=== PATIENT | male | born 1935 | race Caucasian/White ===

== ENCOUNTER → 2020-06-25 02:42 | Outpatient (CLI) | payer MEDICARE, SELFPAY ==
[2020-06-25 19:44] LABS: SARS-CoV-2 RNA PCR Negative
== END ==
PROVIDERS: Visit Provider Internal Medicine Gastroenterology
DX: Z01.812 Encounter for preprocedural laboratory examination (principal); Z20.822 Contact with and (suspected) exposure to COVID-19
CPT/HCPCS: C9803; U0003; U0005

== ENCOUNTER 2020-06-29 02:58 | Day surgery (SDC) | payer MEDICARE, SELFPAY ==
[2020-06-16 13:41] VITALS: BMI 29.9
[2020-06-29 08:29] VITALS: BP 138/66; PULSE 72; RESP 16; TEMP 36.1; O2SAT 100; BMI 30.4
[2020-06-29] MEDS: LACTATED RINGERS 1,000 ML 150 ML IV CONT (08:45)
--- NOTE | 2020-06-29 09:16 | P.PNAN_ITS ---
Anes - Initial Pre Proc Eval Procedure: Operation Date: 06/29/20 09:30 Proposed Procedures p Esophagogastroduodenoscopy & Screening Colonoscopy - Daniel Bneitez MD Date/Time: 06/29/20 09:16 Surgeon: Daniel Yusuf MD Pre Op Diagnosis: GERD, Neoplasm Screening Patient Data Age: 85 Gender: M Height: 6 ft Weight: 101.7 kg Last Vital Signs Temp 96.9 F L 06/29/20 08:29 Pulse 72 06/29/20 08:29 Resp 16 06/29/20 08:29 BP 138/66 06/29/20 08:29 Pulse Ox 100 06/29/20 08:29 Allergies Allergy/AdvReac Type Severity Reaction Status Date / Time No Known Allergies Allergy Unverified 06/29/20 08:29 Home Medications Medication Instructions Recorded Confirmed Type sodium,potassium,mag sulfates 17.5 See Rx Instructions PO .COMPLEX 06/14/20 06/29/20 Rx gram-3.13 gram-1.6 gram oral soln #354 ml allopurinol 300 mg PO QAM 06/16/20 06/29/20 History amlodipine 10 mg PO QAM 06/16/20 06/29/20 History apixaban [Eliquis] 5 mg PO BID 06/16/20 06/29/20 History benazepril 40 mg PO QAM 06/16/20 06/29/20 History cholecalciferol (vitamin D3) 2,000 unit PO QPM 06/16/20 06/29/20 History [Vitamin D3] finasteride 5 mg PO QAM 06/16/20 06/29/20 History loratadine 10 mg PO DAILY PRN 06/16/20 06/29/20 History metoprolol succinate 50 mg PO QAM 06/16/20 06/29/20 History omeprazole 40 mg PO BID 06/16/20 06/29/20 History pravastatin 20 mg PO QPM 06/16/20 06/29/20 History Patient hx anesthesia problems: none Family hx anesthesia problems: none PMFSH Past Medical History Medical History (Updated 06/29/20 @ 09:16 by Brett Baker MD) Atrial fibrillation Hyperlipidemia Hypertension MAVIS (obstructive sleep apnea) Social History Social History Smoking packs per day: 2 Smoking cigarettes per day: 40.0 Years smoked: 20 Smoking pack-years: 40.00 Smoking status: Former smoker Tobacco type: cigarettes Alcohol intake: current Substance use: never Substance use type: does not use Living arrangements: with family Spiritual care concerns: No Anes - Eval Final PreProcedure Day of Procedure 06/29/20 09:16 Patient weight: obese Heart: regular rate and rhythm Lungs: clear to auscultation Airway: Mallampati scale class II Neurological: alert and oriented Last oral intake: >/= 8 hours ASA classification: III Emergent: no Anesthetic plan: proceed Anesthesia type and monitoring: general GIVS and standard monitoring Informed Consent: The patient's anesthetic plan and its attendant risks and benefits were discussed with the patient/family/POA. Questions were solicited and answers provided to the satisfaction of the patient/family/POA.
--- NOTE | 2020-06-29 09:55 | PM.HPGS ---
History of Present Illness History of Present Illness Consent: Risks, benefits, and alternatives have been discussed and questions answered. Patient agrees to proceed with procedure. Chief complaint: GERD, Neoplasm Screening Narrative: Kurtis Mckinney is a 85 year old male with gerd better after ppi was increased bid but still some hoarseness, never had EGD. His last colonoscopy about 10 years ago. Review of Systems Constitutional: Constitutional: Denies headache(s) and Denies weakness Eyes: Eyes: Denies blurry vision ENT: Reports Normal hearing present, Denies headache(s) and Denies neck pain Cardiovascular: Cardiovascular: Denies chest pain and Denies dyspnea Respiratory: Respiratory: Denies dyspnea Gastrointestinal: Gastrointestinal: Reports no additional gastrointestinal complaints Genitourinary: Genitourinary: Denies dysuria Musculoskeletal: Musculoskeletal: Denies neck pain Integumentary/Breasts: Skin/Breast: Denies dry skin Neurologic: Reports Normal hearing present, Denies headache(s) and Denies weakness Psychiatric: Psychiatric: Denies anxiety Endocrine: Endocrine: Denies change in body appearance Hematologic/Lymphatic: Hematologic/Lymphatic: Denies easy bleeding Allergic/Immunologic: Allergic/Immunologic: Denies urticaria PMF Past Medical History Medical History (Updated 06/29/20 @ 09:55 by Daniel Yusuf MD) Atrial fibrillation Colon cancer screening GERD (gastroesophageal reflux disease) Hyperlipidemia Hypertension MAVIS (obstructive sleep apnea) Social History Social History Smoking packs per day: 2 Smoking cigarettes per day: 40.0 Years smoked: 20 Smoking pack-years: 40.00 Smoking status: Former smoker Tobacco type: cigarettes Alcohol intake: current Substance use: never Substance use type: does not use Living arrangements: with family Spiritual care concerns: No Meds Home Medications and Allergies Home Medications Medication Instructions Recorded Confirmed Type sodium,potassium,mag sulfates 17.5 See Rx Instructions PO .COMPLEX 06/14/20 06/29/20 Rx gram-3.13 gram-1.6 gram oral soln #354 ml allopurinol 300 mg PO QAM 06/16/20 06/29/20 History amlodipine 10 mg PO QAM 06/16/20 06/29/20 History apixaban [Eliquis] 5 mg PO BID 06/16/20 06/29/20 History benazepril 40 mg PO QAM 06/16/20 06/29/20 History cholecalciferol (vitamin D3) 2,000 unit PO QPM 06/16/20 06/29/20 History [Vitamin D3] finasteride 5 mg PO QAM 06/16/20 06/29/20 History loratadine 10 mg PO DAILY PRN 06/16/20 06/29/20 History metoprolol succinate 50 mg PO QAM 06/16/20 06/29/20 History omeprazole 40 mg PO BID 06/16/20 06/29/20 History pravastatin 20 mg PO QPM 06/16/20 06/29/20 History Allergies Allergy/AdvReac Type Severity Reaction Status Date / Time No Known Allergies Allergy Unverified 06/29/20 08:29 Vital Signs Vital Signs - 24 hr 06/29/20 08:29 Temperature 96.9 F L Pulse Rate 72 Respiratory Rate 16 Blood Pressure 138/66 Pulse Oximetry 100 Exam Const: General: comfortable and no acute distress HENMT: General nose exam: Normal nares present Eyes: General: appearance normal, both eyes and all related structures Neck: Neck: no JVD Resp: Auscultation: clear to auscultation bilaterally Cardio: Rate: regular rate Rhythm: regular rhythm GI: Inspection: non-distended GI Palp: Yes Soft to palpation Skin: General skin exam: normal color Neuro: General: gait normal Speech: normal speech Extrem: General: normal to inspection Psych: Mental Status: mental status grossly normal Assessment and Plan Assessment and plan (1) GERD (gastroesophageal reflux disease): Code(s): K21.9 - Gastro-esophageal reflux disease without esophagitis Status: Acute Assessment and Plan: egd with bx, already on ppi (2) Colon cancer screening: Code(s): Z12.11 - Encounter for screening for malignant neoplasm of colon Stat
[2020-06-29 10:27] VITALS: BP 121/77; PULSE 89; RESP 20; O2SAT 100
[2020-06-29 10:37] VITALS: BP 136/92; PULSE 91; RESP 16; O2SAT 98
[2020-06-29 10:47] VITALS: BP 133/86; PULSE 103; RESP 25; O2SAT 99
== END 2020-06-29 11:13 | disposition home or self-care (01) ==
PROVIDERS: Visit Provider Internal Medicine Gastroenterology
PROC: 0DJ08ZZ Inspection of Upper Intestinal Tract, Via Natural or Artificial Opening Endoscopic (ICD-10-PCS; CPT 43235; principal; 2020-06-29 09:30)
DX: Z12.11 Encounter for screening for malignant neoplasm of colon (principal); K57.30 Diverticulosis of large intestine without perforation or abscess without bleeding; K64.8 Other hemorrhoids; K21.9 Gastro-esophageal reflux disease without esophagitis; R49.0 Dysphonia; Z79.01 Long term (current) use of anticoagulants; I48.91 Unspecified atrial fibrillation; I10 Essential (primary) hypertension; E78.5 Hyperlipidemia, unspecified; G47.33 Obstructive sleep apnea (adult) (pediatric); Z87.891 Personal history of nicotine dependence; E66.9 Obesity, unspecified; Z68.30 Body mass index [BMI] 30.0-30.9, adult
CPT/HCPCS: 43239; G0121; 88305; C9803; J2001; J2704; J7120; U0003; U0005

== ENCOUNTER 2022-06-07 00:09 | Day surgery (SDC) | payer MEDICARE, SELFPAY ==
--- NOTE | 2022-05-29 09:15 | P.HP_ITS ---
History of Present Illness History of Present Illness Consent: Risks, benefits, and alternatives have been discussed and questions answered. Patient agrees to proceed with procedure. Chief complaint: epididymitis Narrative: Kurtis Mckinney is a 87 year old male Well known to our practice with longstanding BPH managed medically. He was recently seen in follow-up with persistent left epididymitis it did not resolve with a course of antibiotics over the course of 2 months. Exam showed persistent induration in the left epididymis and a scrotal ultrasound showed a 2.5 cm solid mass. After discussion he has elected for left epididymectomy. He is aware the risk including, not limited to, wound infection scrotal hematoma. [facility] Past Medical History Medical History (Updated 05/29/22 @ 09:17 by Sven George MD) Atrial fibrillation Colon cancer screening GERD (gastroesophageal reflux disease) Hyperlipidemia Hypertension MAVIS (obstructive sleep apnea) Social History Social History Smoking packs per day: 2 Smoking cigarettes per day: 40.0 Years smoked: 20 Smoking pack-years: 40.00 Smoking status: Former smoker Tobacco type: cigarettes Alcohol intake: current Substance use: never Substance use type: does not use Living arrangements: with family Spiritual care concerns: No Meds Home Medications and Allergies Home Medications Medication Instructions Recorded Confirmed Type sodium,potassium,mag sulfates 17.5 See Rx Instructions PO .COMPLEX 06/14/20 06/29/20 Rx gram-3.13 gram-1.6 gram oral soln #354 mL (Suprep Bowel Prep Kit) allopurinol 300 mg tablet 300 mg PO QAM 06/16/20 06/29/20 History amlodipine 10 mg tablet 10 mg PO QAM 06/16/20 06/29/20 History apixaban 5 mg tablet (Eliquis) 5 mg PO BID 06/16/20 06/29/20 History benazepril 40 mg tablet 40 mg PO QAM 06/16/20 06/29/20 History cholecalciferol (vitamin D3) 50 2,000 unit PO QPM 06/16/20 06/29/20 History mcg (2,000 unit) capsule (Vitamin D3) finasteride 5 mg tablet 5 mg PO QAM 06/16/20 06/29/20 History loratadine 10 mg tablet 10 mg PO DAILY PRN Allergy Symptoms 06/16/20 06/29/20 History metoprolol succinate 50 mg 50 mg PO QAM 06/16/20 06/29/20 History tablet,extended release 24 hr omeprazole 40 mg capsule,delayed 40 mg PO BID 06/16/20 06/29/20 History release pravastatin 20 mg tablet 20 mg PO QPM 06/16/20 06/29/20 History Allergies Allergy/AdvReac Type Severity Reaction Status Date / Time No Known Allergies Allergy Unverified 06/29/20 08:29 Exam Const: General: no acute distress Resp: Effort & Inspection: normal respiratory effort GI: Inspection: non-distended GI Palp: No abdominal tenderness and No Guarding due to palpation present (GI) Auscultation: normal bowel sounds : Scrotum: other ( Solid left epididymal mass) Assessment and Plan Assessment and plan (1) Epididymal mass: Code(s): N50.89 - Other specified disorders of the male genital organs Status: Acute Assessment and Plan: * left epididymectomy
[2022-05-31 13:06] VITALS: BMI 27.1
--- NOTE | 2022-05-31 13:28 | PC.NURSE ---
Report to the Outpatient Waiting Room, entrance under the green pavilion located off [facility], at time _1000_ on date _06/07/22_. Planned Procedure Time: _1200_. Time changes happen often and if your time is changed the preop area will call you the afternoon before. - You and your visitor will be asked to self-screen and do not enter if you have any COVID symptoms. - Only one visitor is requested with a max of two and NO children visitors are allowed at this time. - The patient visitor may be requested to leave or wait in car when not with patient due to distancing restrictions. - A mask is optional within the hospital at this time. Patients may have clear liquids (water, carbonated beverages, clear teas, apple juice) until 3 hours prior to surgery (0900 AM) with a maximum of 20 ounces. - No food from midnight until time of surgery Take the following medications with a SIP of water the morning of surgery: _METOPROLOL_ DO NOT STOP ANY OF YOUR OTHER PRESCRIPTION MEDICATIONS PRIOR TO SURGERY ?EXCEPT THE FOLLOWING Medications to discontinue per DR. MARKS - _ELIQUIS 3 DAYS PRIOR TO SURGERY, Date to take last dose 06/03/22_ Medications to discontinue per ANESTHESIA - _MULTIVITAMIN 3 DAYS PRIOR TO SURGERY, Date to take last dose 06/03/22_ Please no make-up, nail yi, hairspray, perfume, deodorant, or body powder the day of surgery. No jewelry (including any body piercings) or valuables the day of surgery, leave them at home. Please take a shower or bath the night before, or the morning of, surgery with an antibacterial soap. Wear comfortable, loose fitting clothing. - Jewelry must be removed prior to entering the operating room. Rings and piercings that are not removed may be cut off. - The hospital will not accept responsibility for valuables. - Please leave all valuables, including medications, at home the day of surgery. If you are going home after surgery, a licensed telephone directory distributor driver must drive you home. - NO public transportation without another adult if you receive anesthesia. - We recommend that an adult stay with you for 24 hours following discharge. - We also recommend that you do not drive, make important decision, drink alcoholic beverages, or take any drugs that were not prescribed by your health care provider for at least 24 hours after your discharge time. Follow any additional instructions given to you from your surgeon. If you or anyone in your household have experienced Covid symptoms in the past week, please notify your surgeon or the nurse liaison at the phone number below for possible testing. Telephone instructions given to _PATIENT & SPOUSE_and asked if any additional questions and then verbalized understanding. Patient advised to call surgeon office or pre surgery nurse liaison [phone] if any additional questions.
--- NOTE | 2022-06-06 15:16 | P.PNAN_ITS ---
Anes - Initial Pre Proc Eval Procedure: Operation Date: 06/07/22 11:30 Proposed Procedures p Left Epididymectomy - Sven George MD Date/Time: 06/06/22 15:16 Surgeon: Sven George MD Pre Op Diagnosis: epididymitis Patient Data Age: 87 Gender: M Height: 1.83 m Weight: 90.9 kg Allergies Allergy/AdvReac Type Severity Reaction Status Date / Time No Known Allergies Allergy Unverified 06/29/20 08:29 Home Medications Medication Instructions Recorded Confirmed Type allopurinol 300 mg tablet 300 mg PO QAM 06/16/20 05/31/22 History apixaban 5 mg tablet (Eliquis) 5 mg PO BID 06/16/20 05/31/22 History loratadine 10 mg tablet 10 mg PO DAILY PRN Allergy Symptoms 06/16/20 05/31/22 History metoprolol succinate 50 mg 50 mg PO QAM 06/16/20 05/31/22 History tablet,extended release 24 hr pravastatin 20 mg tablet 20 mg PO QPM 06/16/20 05/31/22 History folic acid 1 mg tablet 1 mg PO DAILY 05/31/22 05/31/22 History losartan 100 mg tablet 100 mg PO DAILY 05/31/22 05/31/22 History methotrexate sodium 2.5 mg tablet 7.5 mg WEEKLY 05/31/22 05/31/22 History multivitamin 1 tablet PO DAILY 05/31/22 05/31/22 History Patient hx anesthesia problems: none Family hx anesthesia problems: none Results Review: All pre-operative results and documents have been reviewed as part of the pre- operative evaluation. [facility] Past Medical History Medical History (Updated 05/29/22 @ 09:17 by Sven George MD) Atrial fibrillation Colon cancer screening GERD (gastroesophageal reflux disease) Hyperlipidemia Hypertension MAVIS (obstructive sleep apnea) Social History Social History Smoking packs per day: 1.5 Smoking cigarettes per day: 30.0 Years smoked: 16 Smoking pack-years: 24.00 Smoking status: Former smoker Tobacco type: cigarettes Second hand tobacco smoke exposure: No Smoking end date: 03/11/71 Alcohol intake: current Drinks per week: 2 Substance use: never Substance use type: does not use Living arrangements: with family Spiritual care concerns: No Anes - Eval Final PreProcedure Day of Procedure 06/06/22 15:16 Patient weight: overweight Heart: regular rate and rhythm Lungs: clear to auscultation Airway: Mallampati scale class II Neurological: alert and oriented Last oral intake: >/= 8 hours ASA classification: III Emergent: no Anesthetic plan: proceed Anesthesia type and monitoring: general LMA and standard monitoring Results Review: All pre-operative results and documents have been reviewed as part of the pre- operative evaluation. Informed Consent: The patient's anesthetic plan and its attendant risks and benefits were discussed with the patient/family/POA. Questions were solicited and answers provided to the satisfaction of the patient/family/POA.
[2022-06-07] VITALS (10 sets, daily range): BP systolic 118–158; BP diastolic 79–97; PULSE 38–83; RESP 12–20; TEMP 36.2–36.4; O2SAT 96–100
--- NOTE | 2022-06-07 06:19 | WPDHPUPDATE1 ---
History and Physical Update Update Date/Time: 06/07/22 06:19 History and Physical has been reviewed, including an updated exam of the patient. There are NO changes in the patient's condition. Risks, benefits, and alternatives have been discussed and questions answered. Patient agrees to proceed with procedure.
[2022-06-07] MEDS: ceFAZolin 2 GM/D5W 50 ML 2 GM/50 ML BAG IVPB (11:56)
--- NOTE | 2022-06-07 12:22 | P.OP_ITS ---
Procedure Note - Detailed Date of Procedure 06/07/22 Pre-op Diagnosis Epididymitis and left epididymal mass Post-op Diagnosis Same Procedure Performed Left epididymectomy Surgeon Sven George MD Anesthesia General Description of Procedure The patient was brought to the operative suite where he was prepped and draped in routine sterile fashion while in a supine position after the uneventful induction of a general LMA anesthetic. An incision was made in the median raphe of the scrotum and dissection was carried into the left tunica vaginalis. The testicle was examined and found to be both visibly and palpably normal. The epididymis was indurated, consistent with chronic infection with an enlarged ma ss-like component towards the tail. The epididymis was excised in its entirety using electrocautery, including this mass-like structure. The testicle was returned to an orthotopic positioned. The dartos muscle was closed with a running 4-0 chromic and the skin was likewise closed with a running 4-0 chromic. Estimated blood loss throughout this procedure was 5cc. Patient tolerated the procedure well and was taken to the recovery room in good condition. Drains No Pathology Yes Complications No immediate complications Condition Stable
[2022-06-07] MEDS: LACTATED RINGERS 1,000 ML 30 ML IV CONT (12:25)
== END 2022-06-07 14:50 | disposition home or self-care (01) ==
PROVIDERS: Visit Provider Urology
PROC: (CPT 54860; principal; 2022-06-07 11:30)
DX: N45.1 Epididymitis (principal); I48.91 Unspecified atrial fibrillation; E78.5 Hyperlipidemia, unspecified; I10 Essential (primary) hypertension; G47.33 Obstructive sleep apnea (adult) (pediatric); K21.9 Gastro-esophageal reflux disease without esophagitis; Z87.891 Personal history of nicotine dependence; Z79.01 Long term (current) use of anticoagulants
CPT/HCPCS: 54860; 88304; J0690; J1100; J2405; J2704; J7120

== ENCOUNTER 2022-06-10 08:18 | Emergency (ER) | payer MEDICARE, SELFPAY ==
--- NOTE | ~2022-06-10 | US_ITS ---
EXAMINATION: US scrotum doppler DATE: 06/10/2022 09:24 INDICATION: Testicular pain. TECHNIQUE: Grayscale and Doppler ultrasound images of the testes were obtained. COMPARISON: None. FINDINGS: The right testis measures 3.8 x 3.5 x 3.1 cm. The left testis measures 3.5 x 3.3 x 3.3 cm. The left testis demonstrates heterogeneously decreased echogenicity. There is relatively decreased va scular flow to left testis. The right epididymis is normal with normal vascular flow. There are singleton es of left epididymectomy. There is a small left hydrocele with loculations. Scrotal skin thickening is noted. IMPRESSION: 1. Heterogeneous left testis with decreased vascular flow suspicious for infarct. 2. Small left hydrocele with loculations. 3. Recent left epididymectomy. Reviewed, dictated and finalized at location A. IMPRESSION: 1. Heterogeneous left testis with decreased vascular flow suspicious for infar ct. 2. Small left hydrocele with loculations. 3. Recent left epididymectomy.
[2022-06-10 08:21] VITALS: BP 138/84; PULSE 115; RESP 18; TEMP 36.3; O2SAT 100
[2022-06-10 09:31] VITALS: BP 142/84; PULSE 93; RESP 22; O2SAT 93
--- NOTE | 2022-06-10 09:40 | ED.GENADULT ---
HPI - General Adult General Chief complaint: Urogenital-Male Stated complaint: testicle swelling after surgery Time Seen by Provider: 06/10/22 08:57 Source: RN notes reviewed History of Present Illness HPI narrative: Patient presents emergency department from home for left testicular pain. Patient states that he had surgery on his left testicle by Dr. George on June 07. He had had his epididymis removed at that time. He states that he got home and been doing well and began to notice pain in his left testicle and swelling on Saturday night the . He states that those symptoms continued on Saturday with increased swelling and bruising of the scrotum and came to the emergency department today for evaluation states he does have pain in left testicle is progressively worsening. Patient is on Eliquis and had been off the medication for the surgery and had restarted it SaturdayJune 09 denies any fevers or chills abdominal pain nausea vomiting Related Data Home Medications Medication Instructions Recorded Confirmed allopurinol 300 mg tablet 300 mg PO QAM 06/16/20 05/31/22 apixaban 5 mg tablet (Eliquis) 5 mg PO BID 06/16/20 05/31/22 loratadine 10 mg tablet 10 mg PO DAILY PRN Allergy Symptoms 06/16/20 05/31/22 metoprolol succinate 50 mg 50 mg PO QAM 06/16/20 05/31/22 tablet,extended release 24 hr pravastatin 20 mg tablet 20 mg PO QPM 06/16/20 05/31/22 folic acid 1 mg tablet 1 mg PO DAILY 05/31/22 05/31/22 losartan 100 mg tablet 100 mg PO DAILY 05/31/22 05/31/22 methotrexate sodium 2.5 mg tablet 7.5 mg WEEKLY 05/31/22 05/31/22 multivitamin 1 tablet PO DAILY 05/31/22 05/31/22 Allergies Allergy/AdvReac Type Severity Reaction Status Date / Time No Known Allergies Allergy Verified 06/10/22 10:19 Review of Systems Review of Systems: Gen.: Denies fevers or chills ENT: Denies congestion Respiratory: Denies shortness of breath or cough CV: Denies chest pain or palpitations GI: Denies abdominal pain nausea, emesis or diarrhea see HPI Musculoskeletal: Denies back pain or muscle pain Neuro: Denies numbness, tingling, weakness or focal weakness Skin: Denies rash Except as documented, all other systems reviewed and negative [facility] Past Medical History Medical History Atrial fibrillation Colon cancer screening GERD (gastroesophageal reflux disease) Hyperlipidemia Hypertension MAVIS (obstructive sleep apnea) Social History Social History Smoking packs per day: 1.5 Smoking cigarettes per day: 30.0 Years smoked: 16 Smoking pack-years: 24.00 Smoking status: Former smoker Tobacco type: cigarettes Second hand tobacco smoke exposure: No Smoking end date: 03/11/71 Alcohol intake: current Drinks per week: 2 Substance use: never Substance use type: does not use Living arrangements: with family Spiritual care concerns: No Exam Narrative: APPEARANCE: No acute distress, nontoxic, resting in bed EYES: EOMI HEENT: Normocephalic, atraumatic, OMM RESPIRATORY: No respiratory distress Clear to auscultation bilaterally with no rhonchi wheezing or rales. CARDIOVASCULAR: Regular rate and rhythm without murmurs rubs or gallops. ABDOMINAL: Soft, nontender, nondistended, no rebound or guarding : There is diffuse ecchymosis of the scrotum up through the penis there is no active bleeding noted, the bilateral testicles are tender to palpation MUSCULOSKELETAl: Moves all extremities. No clubbing, cyanosis or edema. NEURO: Awake and alert. Following commands, speech normal, no focal deficits SKIN:: Warm, dry. No rashes lesions or abrasions PSYCHIATRIC: Normal affect/mood, Course Course Emergency Course: Called and discussed with urology Dr. Espinoza patient presentation work-up reviewed the patient's ultrasound. This time he states he will discussed with radiology and Dr. George and call back
[2022-06-10 10:01] LABS: Basophils Percent Auto 0.3 % (0.2-1.2); Eosinophils Percent Auto 0.2 % (0-4.4); Hemoglobin 13.6 g/dL (14.0-18.0); Immature Granulocyte Absolute 0.04 K/mm3 (0.00-0.031); Immature Granulocyte Percent A 0.4 % (0-0.5); Lymphocytes Absolute Auto 1.02 K/mm3 (0.9-3.2); Lymphocytes Percent Auto 10.8 % (18.3-44.2); Mean Corpuscular HGB Conc 32.4 g/dl (32-36); Mean Corpuscular Hemoglobin 32.7 pg (26-34); Mean Platelet Volume 9.9 fl (7.4-10.4); Monocytes Absolute Auto 0.4 K/mm3 (0.1-0.6); Monocytes Percent Auto 3.8 % (2.6-8.5); Neutrophils Percent Auto 84.5 % (45.5-73.1); Platelet Count Result 143 k/mm3 (150-375); Red Blood Count 4.16 M/mm3 (4.6-6.20); Red Cell Distribution Width 17.7 % (11.5-14.5); White Blood Count 9.5 K/mm3 (4.5-10.0)
[2022-06-10 10:06] LABS: Appearance Urine Clear (Clear); Bacteria Urine None Seen /hpf; Bilirubin Urine Negative (Negative); Blood Urine Negative (Negative); Color Urine Yellow (Yellow); Glucose Urine UA Negative (Negative); Ketones Urine Negative (Negative); Leukocyte Esterase Ur Trace LEU/UL (Negative); Nitrate Urine Negative (Negative); Non Pathogenic Casts 0-2; Protein Urine Negative (Negative); RBC Urine 0-2 /hpf (0-2); Specific Grav Ur 1.009 (1.001-1.035); Squamous Epithelial Cell Urine None seen /hpf (Few); Urobilinogen Urine 0.2 mg/dL (<2.0); WBC Urine 0-5 /hpf; pH Urine 7.5 (5.0-9.0)
[2022-06-10 10:11] LABS: INR 1.1; Prothrombin Time 14.1 Seconds (11.1-14.7)
[2022-06-10 10:12] LABS: Partial Thromboplastin Time 31.5 SECONDS (22.3-36.8)
[2022-06-10 10:14] LABS: Alanine Aminotransferase 30 U/L (6-50); Albumin Level 4.6 g/dL (3.5-5.1); Alkaline Phosphatase 68 U/L (38-126); Anion Gap 4 mmol/L (8-16); Aspartate Amino Transferase 47 U/L (17-59); Bilirubin,Total 1.8 mg/dL (0.2-1.3); Blood Urea Nitrogen 20 mg/dL (9-20); Calcium 9.6 mg/dL (8.4-10.2); Carbon Dioxide 32 mmol/L (22-30); Chloride 105 mmol/L (98-107); Estimated CRCL calculation 65 ml/min; Estimated Glomerular Filt Rate > 60; Glucose 93 mg/dL (65-110); Potassium 4.3 mmol/L (3.4-5.0); Sodium 141 mmol/L (137-145)
[2022-06-10 10:27] LABS: Add Urine Microscopic? YES
[2022-06-10 10:35] VITALS: BP 134/98; PULSE 90; RESP 20; O2SAT 95
== END 2022-06-10 10:35 | disposition home or self-care (01) ==
PROVIDERS: Emergency Provider Emergency Medicine
DX: N99.840 Postprocedural hematoma of a genitourinary system organ or structure following a genitourinary system procedure (principal); N50.89 Other specified disorders of the male genital organs; I48.91 Unspecified atrial fibrillation; E78.5 Hyperlipidemia, unspecified; I10 Essential (primary) hypertension; Z79.01 Long term (current) use of anticoagulants; Z87.891 Personal history of nicotine dependence
CPT/HCPCS: 36415; 76870; 80053; 81001; 85025; 85610; 85730; 86850; 86900; 86901; 93976; 99284